=== PATIENT | female | born 1975 | race Caucasian/White ===

== ENCOUNTER → 2024-03-17 07:36 | Outpatient (REF) | payer BC, SELFPAY | LOC: EMG 07:36 | PROVIDERS: ATTENDING PHYSICIAN Pain Medicine Interventional Pain Medicine; FAMILY PHYSICIAN Physician Assistant Medical | DX: M54.16 Radiculopathy, lumbar region (principal); R20.0 Anesthesia of skin | CPT/HCPCS: 95886; 95911 ==